=== PATIENT | female | born 1970 | race Two or more races ===

== ENCOUNTER 2023-08-01 13:32 | Emergency (ER) | payer MEDICAID, OTHER ==
[~2023-08-01] VITALS: Ht 154.9 cm; Wt 70.4 kg
[2023-08-01] MEDS ORDERED: ALBU108A5 IN (15:16)
[2023-08-01] MEDS ORDERED: AZIT-81 PO (15:16)
[2023-08-01 15:33] VITALS: BP 139/74; PULSE 83; RESP 20; TEMP 99.1; O2SAT 98
== END 2023-08-01 15:37 | disposition home or self-care (01) ==
LOC: ER 13:32
DX: J02.9 Acute pharyngitis, unspecified (principal); J06.9 Acute upper respiratory infection, unspecified; J45.909 Unspecified asthma, uncomplicated; I10 Essential (primary) hypertension